=== PATIENT | female | born 1980 | race Caucasian/White ===

== ENCOUNTER 2019-12-16 07:27 | Inpatient (IN) | payer OTHER ==
[~2019-12-16] VITALS: Ht 172.7 cm; Wt 89.9 kg
[2019-12-16] VITALS (24 sets, daily range): BP systolic 100–137; BP diastolic 47–87
[2019-12-16 07:46] LABS: URINE BILIRUBIN NEGATIVE (Negative); URINE BLOOD NEGATIVE (Negative); URINE CLARITY CLEAR; URINE COLOR YELLOW; URINE GLUCOSE-RANDOM* NEGATIVE (Negative); URINE KETONES NEGATIVE (Negative); URINE LEUKOCYTES-REFLEX NEGATIVE (Negative); URINE NITRITE-REFLEX NEGATIVE (Negative); URINE PROTEIN (DIPSTICK) NEGATIVE (Negative); URINE SPECIFIC GRAVITY <= 1.005 (1.005-1.035); URINE UROBILINOGEN 0.2 E.U./dl (0.2-1.0)
[2019-12-16 07:59] LABS: AMP/METHAMP Negative (Negative); BARBITURATES Negative (Negative); BENZODIAZEPINES Negative (Negative); COCAINE Negative (Negative); METHADONE Negative (Negative); OPIATES Negative (Negative); PCP Negative (Negative)
[2019-12-16 08:10] LABS: BE(vivo) -3.9 mmol/L (-2 to +3); HCO3 20.7 mmol/L (22.0-26.0); PCO2 36.3 mmHg (35.0-45.0); PO2 80.3 mmHg (80.0-100.0); pH 7.373 (7.360-7.450); sO2 95.7 % (92.0-98.0)
[2019-12-16 08:21] LABS: ABSOLUTE NEUTROPHILS 3.4 thou/uL (1.4-8.2); BASOPHILS 0.4 % (0.0-2.0); EOSINOPHILS 0.8 % (0.0-3.0); HEMATOCRIT 41.7 % (37.0-47.0); LYMPHOCYTES 23.7 % (24.0-44.0); MCH 34.8 pg (26.0-34.0); MCHC 33.6 g/dL (28.0-37.0); MCV 103.5 fL (80.0-100.0); MONOCYTES 6.2 % (1.0-8.0); PLATELET COUNT 266 thou/uL (150-400); POLYS 68.9 % (36.0-66.0); RBC 4.03 mil/uL (4.20-5.00); RDW 12.8 % (10.5-14.5)
--- NOTE | 2019-12-16 08:21 | EKG ---
[facility] [place] [address] ELECTROCARDIOGRAM REPORT Name: ROBIN WU Room #: [facility]#: [id number] Admission: Attend Phys: Discharge: Date of : 80 Report #: [id number] THIS REPORT FOR: cc: Farrukh Kulkarni MD [facility] THIS REPORT FOR: //name// [facility] ED Test Date: 2019-12-16 Test Time: 07:54:30 Pat Name: ROBIN WU Department: Room: Gender: F Re Etcher: [facility] : 1980 Requested By: Tyler Santiago Order Number: [id number] MD: Farrukh Kulkarni Measurements Intervals [place] Rate: 99 P: 53 WI: 128 QRS: 45 QRSD: 93 T: 20 QT: 344 QTc: 442 Interpretive Statements Sinus rhythm Normal tracing No previous ECG available for comparison Electronically Signed On 12-16-2019 8:21:25 CDT by Farrukh Kulkarni [email or web address] <ELECTRONICALLY SIGNED> By: Farrukh Kulkarni MD, FAC 12/16/19 0821 [id number] Farrukh Kulkarni MD, FACC /EPI
[2019-12-16 08:25] LABS: ANION GAP 10 mmol/L (7-16); BUN 8 mg/dL (7-18); CHLORIDE 104 mmol/L (98-107); CO2 26 mmol/L (21-32); CREATININE 0.7 mg/dL (0.6-1.0); GLUCOSE 105 mg/dL (74-106); SODIUM 140 mmol/L (136-145)
[2019-12-16 08:32] LABS: ALBUMIN 3.3 g/dL (3.4-5.0); MAGNESIUM 1.7 mg/dL (1.8-2.4); SALICYLATE 3.8 mg/dL (2.8-20.0); SGOT 59 U/L (15-37); SGPT 55 U/L (30-65); TOTAL BILIRUBIN 0.6 mg/dL (0.2-1.0); TOTAL PROTEIN 7.2 g/dL (6.4-8.2); TROPONIN-I <0.06 ng/mL (<0.06)
--- NOTE | 2019-12-16 11:14 | NUR ---
PT ARIVED FROM ED 1045. ANNE ROSAS GAVE REPORT, SIGNED RESTRAINT HAND OFF TOOL. AFFIDAVIT AND COPY OF SUICIDE NOTE ON CHART. PT STARTED ON BIPAP BY RT. ORDER FOR MIDLINE PLACED BECAUSE PT IS A HARD STICK. WILL HAVE HELP WITH ADMISSION SINCE PT IS NOT A GOOD HISTORIAN.
[2019-12-16 12:12] LABS: HCO3 21.6 mmol/L (22.0-26.0); PCO2 41.3 mmHg (35.0-45.0); PO2 119.6 mmHg (80.0-100.0); pH 7.336 (7.360-7.450); sO2 98.1 % (92.0-98.0)
--- NOTE | 2019-12-16 12:57 | NUR ---
MIDLINE PROCEDURE: RISK, BENEFITS, AND ALTERNATIVE TREATMENT DISCUSSED WITH THE FAMILY RELATED TO MIDLINE PLACEMENT PROCEDURE. TEACHING GIVEN RELATED TO POSSIBLE COMPLICATIONS SUCH BLEEDING, INFECTION, CLOT, OR VESSEL PERFORATION. INSTRUCTION GIVEN RELATED TO INFECTION PREVENTION WITH LITERATURE LEFT AT THE BEDSIDE. FAMILY VOICES UNDERSTANDING TO THE ABOVE. MIDLINE PLACED PER PROTOCOL TO RUE BASILIC VEIN. ONE STICK AND NO COMPLICATIONS. PATIENT TOLERATED WELL. MIDLINE TRIMMED TO 12CM. V.O.=20%, TIP OF MIDLINE IN UPPER R ARM. EXCELLENT BLOOD RETURN AND FLUSHES WELL. BIOPATCH, STATLOCK AND TEGADERM PLACED PER PROTOCOL.
--- NOTE | 2019-12-16 16:56 | NUR ---
RN assumed care at 1630. PT appears to be sleeping with her eyes closed. No reports of pain at this time. Room has been scrubbed by residential treatment staff per SI precautions. Sitter is present. High fall risk precautions in place. RN will continue to monitor.
[2019-12-17] VITALS (25 sets, daily range): BP systolic 104–140; BP diastolic 62–89
[2019-12-17 06:13] LABS: ALBUMIN 2.5 g/dL (3.4-5.0); CALCIUM 7.7 mg/dL (8.5-10.1); CREATININE 0.9 mg/dL (0.6-1.0); MAGNESIUM 1.2 mg/dL (1.8-2.4); POTASSIUM 3.1 mmol/L (3.5-5.1); TOTAL BILIRUBIN 1.6 mg/dL (0.2-1.0); TOTAL PROTEIN 5.9 g/dL (6.4-8.2)
--- NOTE | 2019-12-17 11:15 | NUR ---
chart review. report from bedside nurse. olivia consulted. has sitter. pt is a & o x 4, and wants to go home. unable to visit with pt rt no phone in room rt si precaution. cm left message with spouse requested call back. will cont following as needed for dc needs.
--- NOTE | 2019-12-17 13:57 | NUR ---
CIWA score of 4. Resting and easily awakened. Flat affect. Asking for . Aware unable to speak to . Replacing Potassium and Magnesium. 1:1 sitter at bedside for patient safety. Report given to ALISON Harden.
[2019-12-17 17:35] LABS: MAGNESIUM 2.5 mg/dL (1.8-2.4); POTASSIUM 4.1 mmol/L (3.5-5.1)
--- NOTE | 2019-12-17 18:40 | NUR ---
ASSUMED CARE OF PATIENT AT 1400 FROM ALISON CUMMINGS. SITTER PRESENT IN ROOM. PATIENT IS TEARFUL UPON ANY QUESTIONS. HOSSEIN COMPLETED Q FOUR HOURS. GALVIN D/C AT 1600 AND PATIENT VOIDED SUCCESSFULLY WITHOUT ANY PAIN. PATIENTS K+ AND MAG REDRAWN AND FOUND TO BE WITHIN NORMAL LIMITS. PATIENT ASKING FOR CARDS, COLORING BOOK AND CRAYONS DUE TO BEING BORED AND WAITING FOR REEVALUATION BY DR. FENG PRIOR TO AUTHORIZING. PATIENT TO CONTINUE WITH POC.
--- NOTE | 2019-12-17 22:12 | NUR ---
PER DR. FENG PT IS ABLE TO TALK TO (MERISSA) ON THE PHONE FOR 10 MINS. AFTER SEVERAL ATEMPTS TO REACH MERISSA, HE CALLED BACK. CONVERSATION APPEARED PLEASANT BETWEEN THE TWO. PATIENT WAS TEARFUL. SPOKE WITH MERISSA AFTER THE 10 MINS WERE UP, ANSWERED ALL OF HIS QUESTIONS. ALSO SOUNDED TEARFUL AND EXPRESSED HOW THANKFUL HE WAS MULTIPLE TIMES TO BE ABLE TO TALK TO THE PT.
[2019-12-18] VITALS (22 sets, daily range): BP systolic 105–177; BP diastolic 55–113
[2019-12-18 05:37] LABS: HEMATOCRIT 35.4 % (37.0-47.0); HEMOGLOBIN 12.1 gm/dL (12.0-15.0); MCH 35.2 pg (26.0-34.0); MCHC 34.3 g/dL (28.0-37.0); MCV 102.7 fL (80.0-100.0); RBC 3.45 mil/uL (4.20-5.00); RDW 12.3 % (10.5-14.5); WBC 5.8 thou/uL (4.0-11.0)
[2019-12-18 06:11] LABS: CALCIUM 8.4 mg/dL (8.5-10.1); CREATININE 0.7 mg/dL (0.6-1.0); MAGNESIUM 1.9 mg/dL (1.8-2.4); POTASSIUM 3.6 mmol/L (3.5-5.1)
--- NOTE | 2019-12-18 17:59 | NUR ---
SITTER AT BEDSIDE THROUGHOUT SHIFT. VSS, CIWA SCORE = 3 FOR ENTIRE SHIFT. WILL TRANSFER TO 4TH FLOOR AND EVENTUALLY TO [facility]
--- NOTE | 2019-12-19 02:54 | NUR ---
ASSUMED PT CARE AROUND 1930. AXOX4. 1:1 SITTER AT BEDSIDE AT ALL TIMES. PT SPOKE TO HER USING HOSPITAL PHONE FOR LESS THAN 10MINS WITH RN PRESENT IN THE ROOM. HYPERTENSION NOTED. FLUIDS STOPPED AND BP NORMALIZED LATER. TOOK ALL MEDS WITHOUHT REFUSAL. CIWA COMPLETED AND MEDICATED PER MD ORDER. NO S/S ACUTE DISTRESS NOTED OR REPORTED AT THIS TIME. WILL CONT TO MONITOR FOR ANY CHANGES IN CONDITION.
[2019-12-19 03:33] VITALS: BP 139/97
[2019-12-19 08:46] VITALS: BP 132/61
[2019-12-19] MEDS ORDERED: AMOX TR-K CLV1 EAC4 PO (10:06)
--- NOTE | 2019-12-19 15:11 | NUR ---
Assumed pt care this am, 1:1 sitter present in the room at all times. Frequesnt visits done through out the day. Pt was tearful mid morning wanting to go home and not to go the "crazy house'. Dr. Calle came in the room and mentioned to the pt that she could go off telemetry, no order was placed by , text regarding this order and mentioned that orders need to be placed for nurses to execute. No orders placed as of this writing. CIWA assessment and score at 4 today. Complete bath and oral care was done by the pt. Diet and medication are well tolerated. POC followed.
[2019-12-19 16:14] VITALS: BP 119/74
[2019-12-19 18:42] VITALS: BP 123/68
--- NOTE | 2019-12-20 03:04 | NUR ---
VSS-AFEBRILE. LUNGS CLEAR-ROOM AIR. ALERT AND ORIENTED X 4, REPORTS NO CURRENT THOUGHTS OF SELF HARM. SOME MILD ANXIETY PRESENT AT BEDTIME, COMPLETELY RELIEVED WITH IV ATIVAN. SITTER REMAINS AT BEDSIDE, SAFETY PRECAUTIONS IN PLACE. PLEASANT AND COOPERATIVE THROUGH NIGHT. CALLS APPROPRIATELY WHEN NEEDING ANY ASSISTANCE.
[2019-12-20 04:31] VITALS: BP 113/55
[2019-12-20 07:41] VITALS: BP 111/72
--- NOTE | 2019-12-20 15:54 | NUR ---
Assumed patient care at 0715. Patient continues on a one-to-one with a sitter. She denies any suicidal and/or homicidal ideation. She has not attempted to harm herself. Patient informed this nurse that the main reason she attempted suicide is "because of my job", and, "it's so stressful." Patient did not elaborate any further. LSCTA, alert and oriented x's 4, she is up ad ilan. Abdomen is soft and non-tender, BS x's 4, she denies pain. Patient has a flat affect, has been teary-eyed a few times. She has spent time resting with her eyes closed. Midline in right upper arm is patent. Patient was given Miralax this am with morning medications; no results as of yet. Will continue to monitor.
[2019-12-20 16:35] VITALS: BP 104/65
[2019-12-20 19:03] VITALS: BP 107/69
--- NOTE | 2019-12-21 07:28 | NUR ---
VSS-AFEBRILE. LUNGS CLEAR-ROOM AIR. RESTED WELL OVERNIGHT WITH FEW NEEDS. SITTER REMAINS AT BEDSITE FOR CONSTANT MONITORING. NO REPORTED SUICIDAL THOUGHTS OR PLAN IN PLACE. CALLS APPROPRIATELY FOR ANY NEEDED ASSISTANCE.
--- NOTE | 2019-12-21 15:16 | NUR ---
Assumed patient care at 0715. Patient continues on a one-on-one status for previous suicide attempt. She denies suicidal and/or homicidal ideations. Patient has not attempted to self harm during this shift; she has been talking to her "sitter" and has been engaged in conversation. Patient was seen by Dr Redman, Psychiatrist today. Dr Redman approved for patient's to come for daily visits but, only for an hour at a time. Patient will be Discharged as soon as a bed is available in a [facility]. Vital signs stable, LSCTA, ABD is soft and non-tender, BS x's 4, skin is clean, warn, dry and intact; she denies pain. Lorazepam 1mg IV push given for agitation this afternoon; medication effective. Will continue to monitor.
[2019-12-21 21:37] VITALS: BP 114/75
--- NOTE | 2019-12-22 04:00 | NUR ---
Assumed pt care at 1900. Pt is A/OX4,VSS. Denies SI,reports feeling sad/scared no anxiety noted. Denies pain on assessment. Up with SBA,has a sitter in room room clear of items she can harm self with. Will continue to monitor pt.
--- NOTE | 2019-12-22 16:28 | NUR ---
CM VISITED WITH PT THIS AM. SHE INDICATED SHE IS VOLUNTARY AND WILLING TO GO FOR INPATIENT PSYC TREATMENT. CM SENT REFERRALS TO: [facility]- FULL [facility]-FULL SIGNITURE- [facility]- WANT PROG NOTE STATEING PT IS VOLUNTARY STILL [facility]- WANT UPDATED LABS AND COVID TEST GOT SOME INFO FROM PT'S SPOUSE ON HEALTH INSURANCE PROVIDED IT TO UR NURSE AND [place] WHO CALLED AND COMPANY CAN'T PULL PT UP UNDER HER NAME OR HER HUSBANDS LAST NAME. WORKING WITH PT AND SPOUSE TO CLARIFY. CM FOLLOWING TO TRY TO FIND PLACEMENT.
--- NOTE | 2019-12-22 18:10 | NUR ---
Assumed patient care at 0715. Patient continues with a sitter due to her recent attempt at suicide. Patient continues to deny suicidal and/or homicidal ideations. Speech is pressured. She is noted to wring her hands during conversation. Patient was given Ativan 1mg po with morning medications. Medication was effective. came for a visit this afternoon. Patient is noted to have anxiety after leaves. Appetite is good. Vital signs are stable. She continues to be medication compliant. Will report to on-coming nurse.
[2019-12-22 18:55] VITALS: BP 98/58
--- NOTE | 2019-12-22 19:44 | NUR ---
MIDLINE DRSG CLEAN, DRY, AND INTACT. THERE IS NO EDEMA, REDNESS,NO DRAINAGE AT THE SITE. HOWEVER, PATIENT VOICES SHE HAS TENDERNESS IN HER LOWER AXILAE. NO EDEMA OR REDNESS NOTED THERE. PATIENT'S RN VOICES SHE WILL NOTIFY HER DOCTOR ON ROUNDS.
[2019-12-22 20:09] LABS: HEMATOCRIT 37.4 % (37.0-47.0); RBC 3.63 mil/uL (4.20-5.00)
[2019-12-22 20:10] LABS: HEMOGLOBIN 12.9 gm/dL (12.0-15.0); MCH 35.5 pg (26.0-34.0); MCHC 34.5 g/dL (28.0-37.0); RDW 12.1 % (10.5-14.5); WBC 11.8 thou/uL (4.0-11.0)
[2019-12-22 20:19] LABS: CALCIUM 9.1 mg/dL (8.5-10.1); CREATININE 0.8 mg/dL (0.6-1.0); POTASSIUM 4.4 mmol/L (3.5-5.1)
--- NOTE | 2019-12-23 03:21 | NUR ---
Patient aox4 makes needs known. patient had some anxiety, but denied all other psych issues. patient had a flat affect, poor eye contact, fair grooming and hygiene. patient on 1:1. patient encouraged fluids. patient had 10 minute call with her . patient is calm and cooperative with meds and care. patient in bed asleep at this time breathing regular and unlaboured.
[2019-12-23 07:47] VITALS: BP 100/55
--- NOTE | 2019-12-23 10:43 | NUR ---
CM MET WITH PT AT BEDSIDE THIS AM INDICATED THAT REFERRALS HAD BEEN SENT AND WHERE TO AND WHAT CM HAD HEARD FROM EACH FACILITY. CM SENT UPDATED LABS, FACESHEET WITH UPDATED INSURANCE INFO, AND COVID PENDING LAB TO [facility] AND [facility] THIS AM. JESSICA CALLED AND SAID THEY WERE DECLINING ADMISSION AT THIS TIME. [facility] IS FULL THIS AM. CM CALLED [facility] BED PAGER AND HAVEN'T HEARD BACK YET. CM SENT REFERRAL TO [facility]. CM TO FOLLOW INDICATED WITH DC PLANNING.
--- NOTE | 2019-12-23 13:42 | NUR ---
Nutrition: Pt admitted following suicide attempt. Seen due to LOS. German present. Pt eating very well, 75-100% of meals and voices good appetite. Able to order meals if desired. Stable weights reported. Plan transfer to inpatient psych unit soon. Low nutrition risk.
[2019-12-23 16:00] VITALS: BP 112/65
--- NOTE | 2019-12-23 16:07 | NUR ---
PT A&OX4. PICC LINE IN [place] REMOVED. COVID TEST COMPLETED AND TAKEN TO LAB. PT HAS NO SI AND IS IN A PLEASANT MOOD. PT DID GET CLEANED UP THIS AM. APPETITE IS GOOD AND NO PRN MEDS NEEDED TO BE ADMINISTERED. PT REMAIN ON 1:1 NURSING AT THIS TIME.
--- NOTE | 2019-12-24 03:38 | NUR ---
VSS-AFEBRILE. LUNGS CLEAR-ROOM AIR. RESTED WELL THROUGH NIGHT WITH FEW NEEDS. NO THOUGHTS ON HURTING SELF OR OTHERS. CALLS APPROPRIATELY FOR ANY NEEDED ASSISTANCE.
[2019-12-24 08:59] VITALS: BP 100/47
--- NOTE | 2019-12-24 12:15 | NUR ---
Assumed pt care at 7am.Pt in bed resting with sitter at bs for suicide ideation.Assessment completed.vss.Dr Calle and Юлия here,dc order noted. Pt tolerated meds and diet.Notified family preservation caseworker and pt spouse about pt dc today.[facility] called for fax number.Dc order faxed.At 1215,pt dc with spouse and chart copy completed and given to pt's spouse at dc.
--- NOTE | 2019-12-24 12:19 | NUR ---
[employer] spoke with Aundrea at [facility] and they have accepted the pt for inpt ethol tx today. They are aware that family will be driving her there and it is a [address]hr drive. Nursing updated. Dc vacation planner has faxed them a copy of her dc instructions/summary. Psych updated and pt cleared for dc today via family car.
== END 2019-12-24 12:38 | disposition home or self-care (01) | DRG 917 ==
LOC: ER 07:27 → EROBS 09:13 → ICU 09:13 → 4W 09:13 → ICU 10:23 → 4W 12-18 19:53
PROVIDERS: Emergency Medicine; Nurse Practitioner Family; ADMIT Hospitalist; ATTEND Hospitalist
PROC: 5A09357 Assistance with Respiratory Ventilation, Less than 24 Consecutive Hours, Continuous Positive Airway Pressure (ICD-10-PCS; principal; 2019-12-16)
PROC: 05HB33Z Insertion of Infusion Device into Right Basilic Vein, Percutaneous Approach (ICD-10-PCS; principal; 2019-12-16)
DX: T43.222A Poisoning by selective serotonin reuptake inhibitors, intentional self-harm, initial encounter (principal); J96.00 Acute respiratory failure, unspecified whether with hypoxia or hypercapnia; J69.0 Pneumonitis due to inhalation of food and vomit; F10.129 Alcohol abuse with intoxication, unspecified; F32.9 Major depressive disorder, single episode, unspecified; T14.91XA Suicide attempt, initial encounter; D75.89 Other specified diseases of blood and blood-forming organs; Z20.828 Contact with and (suspected) exposure to other viral communicable diseases; Y92.89 Other specified places as the place of occurrence of the external cause; Z79.899 Other long term (current) drug therapy
CPT/HCPCS: 10040; 10078